=== PATIENT | male | born 1985 | race Caucasian/White ===

== ENCOUNTER 2024-11-17 13:47 | Emergency (ER) | payer MEDICAID ==
[~2024-11-17] VITALS: Ht 167.6 cm; Wt 93.0 kg
--- NOTE | 2024-11-17 14:19 | Physician Documentation ---
History of Present Illness ~ Chief Complaint: Foot pain Stated Complaint: BLISTER ON FOOT Time Seen by MD: 14:02 OK to notify your PCP?: Yes Source: patient Mode of Arrival: EMS Exam Limitations: no limitations HPI 39-year-old male presents via EMS for blisters to right foot for the past day. He had called for an ambulance earlier today and some bandages and ice packs were provided. He states now it is worse and it is painful to walk on. He is also requesting to have his gabapentin refilled but he has been off of it for awhile. He is also complaining of left tongue pain for the past 2 days. Review of Systems All Other Systems at this time: Reviewed and Negative Physical Exam Vital Signs: RN Vital Signs have been reviewed: Yes, Temperature: 97.3, Source: Temporal, Heart Rate: 96, Respiratory Rate: 16, BP: 122/85, Pulse Oximetry: 99, Weight: 93.000 Pulse Oximetry Reflects: adequate oxygenation Physical Exam General: Alert, no apparent distress. HEENT: PERRL, EOMI, no injection, moist mucous membranes. Small canker sore to left lateral side of tongue. Neck: Full range of motion. Respiratory: Lungs clear, no respiratory distress. Chest: No accessory muscle use. Cardiovascular: Regular rate and rhythm, no murmurs. Gastrointestinal: Soft, nontender, nondistended. Bowels sounds present. Extremities: Normal range of motion, no deformity. Neurologic: Oriented x4. Psychiatric: Normal mood and affect. Skin: Normal color, warm and dry. No edema, no ecchymosis. Small blister in between 2nd and 3rd toe of right foot on plantar surface and the 2nd blister to lateral surface of right heel both of which have opened and drained with skin intact. Progress Results/Orders Reviewed/noted all lab results: Yes Results/Orders Vital Signs 11/17/24 13:58 Temp 97.3 Pulse 96 Resp 16 B/P (MAP) 122/85 Pulse Ox 99 Medical Decision Making Findings He is a 39-year-old male who presents with 2 blisters to his right foot which occurred 1 day ago after walking around town which have popped but the skin is still intact. I cleaned up the foot well as there was some debris around the site. No signs or symptoms of infection at the sites. We discussed that he needs to keep the blister areas clean and dry and monitor for signs and symptoms of infection. He has not been given any antibiotics at this time as there is no indication for them however if he starts to show symptoms of infection he may need to return to receive some antibiotics. He also has had for the past 2 days pain to his right tongue which appears to be a small canker sore. He says he keeps biting the area over and over we discussed that warm salt water mouth washes can be helpful to relief pain and keep the area clean. You can use Tylenol and/or ibuprofen for pain relief. He is requesting having his gabapentin 300 mg refilled although he has not been on it for some time. He is unable to give any details regarding this and the external pharmacy history is not available at this time. We discussed that I do not feel comfortable starting him on medication if he has been off it for a while as there was no way for him to follow up with me in the he should follow up with his primary care provider or [facility] for further management. Tylenol and ibuprofen were administered in the department for pain relief. Vitals are within normal limits. General Diff Dx:Considerations: Include: Abrasion, Hematoma, Laceration Toe Diff Dx:Considerations: Include: Cellulitis, Paronychia Departure Disposition: 01 HOME / SELF CARE / HOMELESS Impression: Primary Impression: Blister (nonthermal), right foot, initial encounter Additional Impression: Aphthous ulcer of tongue Condition: Stable Discharge Instructions: Blisters, Adult, Canker Sores Additional Instructions: Please keep the blisters to the right foot clean and dry. You can use Tylenol and ibuprofen for pain relief. Do salt water mouth rinses for the canker sore to your tongue. Follow up with the primary care provider in the next 3 days and return back here for any new or worsening symptoms. If you would like your gabapentin to be refilled, you should follow up with the physician who 1st prescribed or with [facility]. Referrals: NO PRIMARY CARE PROVIDER (PCP) Education Educated: Patient Educated regarding: diagnosis, treatment, prognosis, need for follow up Signature Scribe Signature: . Attestation: Scribed for Katarzyna Adam Last Trimmer by Katarzyna Benitez NP . 11/17/24 14:36 Parts of this note were created using [employer] voice recognition software program. While efforts were made to correct any mistakes made by this voice recognition software program, nonsensical phrases may remain in this note. In addition, there may be errors and syntax, grammar, content and spelling. KATARZYNA ADAM [facility] Nov 17, 2024 14:19
[2024-11-17] MEDS: ibuprofen tablet 400 MG TABLET PO ONE (14:58)
[2024-11-17 15:02] VITALS: BP 122/85; PULSE 96; RESP 16; TEMP 97.3; O2SAT 99
== END 2024-11-17 15:00 | disposition home or self-care (01) ==
LOC: ER 13:47
DX: S90.821A Blister (nonthermal), right foot, initial encounter (principal); K12.0 Recurrent oral aphthae; X58.XXXA Exposure to other specified factors, initial encounter; Y93.89 Activity, other specified; Y92.89 Other specified places as the place of occurrence of the external cause; Y99.8 Other external cause status
CPT/HCPCS: 16000; 99283